=== PATIENT | male | born 1955 | race Caucasian/White ===

== ENCOUNTER 2019-04-29 08:32 | Inpatient (IN) ==
[2019-04-29 09:59] LABS: Basophils # 0.1 10*3/uL (0.0-0.2); Basophils % 0.5 % (0.0-0.8); Eosinophils # 0.1 10*3/uL (0.0-0.87); Eosinophils % 0.6 % (0.00-10.9); Hematocrit 50.9 VOL% (42.0-52.0); Hemoglobin 16.9 GM/DL (14.0-18.0); Immature Granulocytes % 0.2 %; Immature Granulocytes Absolute 0.03 #; Lymphocytes # 3.2 10*3/uL (1.4-4.0); Lymphocytes % 25.4 % (21.2-54.2); Mean Corpuscular HGB Conc 33.2 GM/DL (32-36); Mean Corpuscular Volume 87.9 FL (87-102); Mean Platelet Volume 10.6 FL (9.6-12.0); Monocytes % 8.4 % (1.7-12.7); Neutrophils % 64.9 % (38.7-73.9); Platelet Count 310 T/CUMM (130-400); Red Blood Count 5.79 MC/CUMM (3.8-5.5); Red Cell Distribution Width 13.7 % (9.3-17.3); White Blood Count 12.4 T/CUMM (4-12)
[2019-04-29 10:24] LABS: Albumin 4.2 G/DL (3.4-5.0); Bilirubin,Total 0.6 MG/DL (0.2-1.0); Calcium 10.3 MG/DL (8.5-10.1); Osmolality,Calculated 270.1 MOS/KG (273-304); Total Protein 9.5 G/DL (6.4-8.3)
[2019-04-29] MEDS ORDERED: KETOROLAC 60 MG/2 ML VIAL IM ONE (10:25)
[2019-04-29] MEDS ORDERED: KETOROLAC 30 MG/1 ML VIAL IV STA (10:25)
[2019-04-29] MEDS ORDERED: ACETAMINOPHEN 325 MG TABLET PO PRN (10:59)
[2019-04-29] MEDS ORDERED: ONDANSETRON 4 MG/2 ML VIAL IV PRN (10:59)
[2019-04-29] MEDS ORDERED: PROMETHAZINE 25 MG/1 ML VIAL IM PRN (10:59)
[2019-04-29 12:21] LABS: Parathyroid Hormone Intact 40.3 PG/ML (18.4-80.1)
[2019-04-29] MEDS: KETOROLAC 30 MG/1 ML VIAL IV SCH ×2 (13:15→17:50)
[2019-04-29] MEDS ORDERED: CEFEPIME 2,000 MG in SODIUM CHLORIDE 0.9% 100 ML IV SCH (14:00)
[2019-04-29] MEDS: cefTRIAXone 2,000 MG in SYRINGE 1 EACH IV SCH (14:29)
[2019-04-29] MEDS: AMPICILLIN INJ 2,000 MG in SODIUM CHLORIDE 0.9% 100 ML IV SCH ×2 (14:32→20:22)
[2019-04-29] MEDS: DEXTROSE 5% NACL 0.45% 1,000 ML IV SCH (14:36)
[2019-04-29] MEDS ORDERED: VANCOMYCIN INJ 2,250 MG in SODIUM CHLORIDE 0.9% 500 ML IV ONE (15:00)
[2019-04-29] MEDS: ACYCLOVIR INJ 850 MG in SODIUM CHLORIDE 0.9% 250 ML IV SCH ×2 (15:22→22:31)
[2019-04-29] MEDS: METHOCARBAMOL INJ 1,000 MG in SODIUM CHLORIDE 0.9% 100 ML IV SCH (17:41)
[2019-04-30] MEDS: METHOCARBAMOL INJ 1,000 MG in SODIUM CHLORIDE 0.9% 100 ML IV SCH ×3 (00:26→16:13)
[2019-04-30] MEDS: KETOROLAC 30 MG/1 ML VIAL IV SCH ×4 (01:10→17:48)
[2019-04-30] MEDS: DEXTROSE 5% NACL 0.45% 1,000 ML IV SCH ×3 (01:40→15:32)
[2019-04-30] MEDS: cefTRIAXone 2,000 MG in SYRINGE 1 EACH IV SCH (02:36)
[2019-04-30] MEDS: AMPICILLIN INJ 2,000 MG in SODIUM CHLORIDE 0.9% 100 ML IV SCH ×3 (02:37→15:32)
[2019-04-30] MEDS: VANCOMYCIN INJ 1,250 MG in SODIUM CHLORIDE 0.9% 250 ML IV SCH ×2 (03:35→16:13)
[2019-04-30 05:17] LABS: Total Protein (Chem) 9.5 G/DL (6.4-8.3)
[2019-04-30 05:50] LABS: Basophils # 0.1 10*3/uL (0.0-0.2); Basophils % 0.8 % (0.0-0.8); Eosinophils # 0.3 10*3/uL (0.0-0.87); Eosinophils % 4.1 % (0.00-10.9); Hematocrit 42.4 VOL% (42.0-52.0); Hemoglobin 13.8 GM/DL (14.0-18.0); Immature Granulocytes % 0.3 %; Immature Granulocytes Absolute 0.02 #; Lymphocytes # 2.8 10*3/uL (1.4-4.0); Lymphocytes % 37.6 % (21.2-54.2); Mean Corpuscular HGB Conc 32.5 GM/DL (32-36); Mean Corpuscular Volume 89.3 FL (87-102); Mean Platelet Volume 10.4 FL (9.6-12.0); Monocytes % 12.9 % (1.7-12.7); Neutrophils % 44.3 % (38.7-73.9); Platelet Count 248 T/CUMM (130-400); Red Blood Count 4.75 MC/CUMM (3.8-5.5); Red Cell Distribution Width 13.6 % (9.3-17.3); White Blood Count 7.4 T/CUMM (4-12)
[2019-04-30] MEDS: ACYCLOVIR INJ 850 MG in SODIUM CHLORIDE 0.9% 250 ML IV SCH ×2 (06:03→17:42)
[2019-04-30 06:04] LABS: Bilirubin,Total 0.6 MG/DL (0.2-1.0); Calcium 9.1 MG/DL (8.5-10.1); Osmolality,Calculated 277.5 MOS/KG (273-304); Risk Ratio 4.97; Total Protein 6.9 G/DL (6.4-8.3)
[2019-04-30 06:53] LABS: Immuno Free Light Chain Kappa 4.73 MG/DL (0.33-1.94); Immuno Free Light Chain Lambda 2.25 MG/DL (0.57-2.63); Immuno Free Light Chain Ratio 2.1 MG/DL (0.26-1.65)
[2019-04-30 07:52] LABS: Albumin (SPE) Rel % 61.6 %; Alpha 1 (SPE) Rel % 2.7 %; Alpha 2 (SPE) Rel % 10.6 %; Beta (SPE) Rel % 10.8 %; Gamma (SPE) Rel % 14.3 %
[2019-04-30 08:17] LABS: Albumin (SPE) 5.9 G/DL (3.2-5.3); Alpha 1 (SPE) 0.3 G/DL (0.1-0.4); Gamma (SPE) 1.4 G/DL (0.7-1.7)
[2019-04-30] MEDS: PANTOPRAZOLE 40 MG TABLET PO SCH (09:21)
[2019-04-30] MEDS: ENOXAPARIN 40 MG/0.4 ML SYRINGE SUBCUT SCH (20:39)
[2019-05-01] MEDS: METHOCARBAMOL INJ 1,000 MG in SODIUM CHLORIDE 0.9% 100 ML IV SCH ×3 (00:37→17:17)
[2019-05-01] MEDS: ACYCLOVIR INJ 850 MG in SODIUM CHLORIDE 0.9% 250 ML IV SCH ×3 (01:24→17:59)
[2019-05-01] MEDS: DEXTROSE 5% NACL 0.45% 1,000 ML IV SCH ×2 (05:47→22:52)
[2019-05-01] MEDS: PANTOPRAZOLE 40 MG TABLET PO SCH (08:53)
[2019-05-01] MEDS ORDERED: NITROGLYCERIN SL 0.4 MG TABLET SL PRN (10:33)
[2019-05-01] MEDS ORDERED: CYCLOBENZAPRINE 10 MG TABLET PO PRN (10:33)
[2019-05-01] MEDS: cefTRIAXone 2,000 MG in SYRINGE 1 EACH IV SCH ×2 (11:58→22:52)
[2019-05-01] MEDS: ASPIRIN EC 81 MG TABLET PO SCH (12:06)
[2019-05-01] MEDS: ATORVASTATIN 10 MG TABLET PO SCH (12:06)
[2019-05-01] MEDS: CLOPIDOGREL 75 MG TABLET PO SCH (12:06)
[2019-05-01] MEDS: hydroCHLOROthiazide 25 MG TABLET PO SCH (12:06)
[2019-05-01] MEDS: AMPICILLIN INJ 2,000 MG in SODIUM CHLORIDE 0.9% 100 ML IV SCH ×3 (12:07→22:52)
[2019-05-01] MEDS: DULoxetine 20 MG CAPSULE PO SCH ×2 (12:15→20:18)
[2019-05-01] MEDS: VANCOMYCIN INJ 1,250 MG in SODIUM CHLORIDE 0.9% 250 ML IV SCH ×2 (12:29→22:52)
[2019-05-01] MEDS: CLORAZEPATE 3.75 MG TABLET PO SCH ×2 (15:27→20:18)
[2019-05-01] MEDS: GABAPENTIN 400 MG CAPSULE PO SCH (20:18)
[2019-05-01] MEDS: ENOXAPARIN 40 MG/0.4 ML SYRINGE SUBCUT SCH (20:19)
[2019-05-01] MEDS: traZODone 50 MG TABLET PO SCH (20:19)
[2019-05-02] MEDS: ACYCLOVIR INJ 850 MG in SODIUM CHLORIDE 0.9% 250 ML IV SCH ×3 (01:13→16:45)
[2019-05-02] MEDS: METHOCARBAMOL INJ 1,000 MG in SODIUM CHLORIDE 0.9% 100 ML IV SCH ×2 (01:13→09:23)
[2019-05-02] MEDS: AMPICILLIN INJ 2,000 MG in SODIUM CHLORIDE 0.9% 100 ML IV SCH ×4 (05:04→22:04)
[2019-05-02 06:15] LABS: Basophils # 0.1 10*3/uL (0.0-0.2); Basophils % 1.1 % (0.0-0.8); Eosinophils # 0.5 10*3/uL (0.0-0.87); Eosinophils % 6.3 % (0.00-10.9); Hematocrit 42.6 VOL% (42.0-52.0); Hemoglobin 13.9 GM/DL (14.0-18.0); Immature Granulocytes % 0.4 %; Immature Granulocytes Absolute 0.03 #; Lymphocytes # 3.2 10*3/uL (1.4-4.0); Lymphocytes % 42.6 % (21.2-54.2); Mean Corpuscular HGB Conc 32.6 GM/DL (32-36); Mean Corpuscular Volume 89.3 FL (87-102); Mean Platelet Volume 10.6 FL (9.6-12.0); Monocytes % 8.5 % (1.7-12.7); Neutrophils % 41.1 % (38.7-73.9); Platelet Count 247 T/CUMM (130-400); Red Blood Count 4.77 MC/CUMM (3.8-5.5); Red Cell Distribution Width 13.5 % (9.3-17.3); White Blood Count 7.4 T/CUMM (4-12)
[2019-05-02 06:27] LABS: Calcium 9.1 MG/DL (8.5-10.1); Osmolality,Calculated 279.4 MOS/KG (273-304)
[2019-05-02] MEDS: hydroCHLOROthiazide 25 MG TABLET PO SCH (09:18)
[2019-05-02] MEDS: CLOPIDOGREL 75 MG TABLET PO SCH (09:18)
[2019-05-02] MEDS: CLORAZEPATE 3.75 MG TABLET PO SCH ×3 (09:18→20:32)
[2019-05-02] MEDS: PANTOPRAZOLE 40 MG TABLET PO SCH (09:18)
[2019-05-02] MEDS: ATORVASTATIN 10 MG TABLET PO SCH (09:18)
[2019-05-02] MEDS: ASPIRIN EC 81 MG TABLET PO SCH (09:18)
[2019-05-02] MEDS: DULoxetine 20 MG CAPSULE PO SCH ×2 (10:08→20:32)
[2019-05-02] MEDS: cefTRIAXone 2,000 MG in SYRINGE 1 EACH IV SCH ×2 (11:21→20:32)
[2019-05-02] MEDS: VANCOMYCIN INJ 1,250 MG in SODIUM CHLORIDE 0.9% 250 ML IV SCH (11:43)
[2019-05-02] MEDS: DEXTROSE 5% NACL 0.45% 1,000 ML IV SCH ×4 (11:51→22:05)
[2019-05-02] MEDS: METHOCARBAMOL 500 MG TABLET PO SCH ×2 (14:47→20:32)
[2019-05-02] MEDS: traZODone 50 MG TABLET PO SCH (20:32)
[2019-05-02] MEDS: ENOXAPARIN 40 MG/0.4 ML SYRINGE SUBCUT SCH (20:32)
[2019-05-02] MEDS: GABAPENTIN 400 MG CAPSULE PO SCH (20:32)
[2019-05-03] MEDS: ACYCLOVIR INJ 850 MG in SODIUM CHLORIDE 0.9% 250 ML IV SCH ×3 (00:40→16:36)
[2019-05-03] MEDS: AMPICILLIN INJ 2,000 MG in SODIUM CHLORIDE 0.9% 100 ML IV SCH ×2 (02:53→10:46)
[2019-05-03 04:56] LABS: Basophils # 0.1 10*3/uL (0.0-0.2); Basophils % 1.3 % (0.0-0.8); Eosinophils # 0.6 10*3/uL (0.0-0.87); Eosinophils % 9.5 % (0.00-10.9); Hematocrit 39.7 VOL% (42.0-52.0); Hemoglobin 12.9 GM/DL (14.0-18.0); Immature Granulocytes % 0.1 %; Immature Granulocytes Absolute 0.01 #; Mean Corpuscular HGB Conc 32.5 GM/DL (32-36); Mean Corpuscular Volume 88.4 FL (87-102); Mean Platelet Volume 10.6 FL (9.6-12.0); Monocytes % 9.7 % (1.7-12.7); Neutrophils % 35.4 % (38.7-73.9); Platelet Count 249 T/CUMM (130-400); Red Blood Count 4.49 MC/CUMM (3.8-5.5); Red Cell Distribution Width 13.6 % (9.3-17.3); White Blood Count 6.8 T/CUMM (4-12)
[2019-05-03 05:44] LABS: Atypical Lymphocytes Few; Band Neutrophils 2 % (0-10); Eosinophils 9 % (0-10); Hypochromasia 1+; Lymphocytes 41 % (20-55); Microcytosis Slight; Segmented Neutrophils 43 % (50-85); Total Cells Counted 100
[2019-05-03 05:45] LABS: Platelet Estimate Normal
[2019-05-03 06:04] LABS: Bilirubin,Total 0.5 MG/DL (0.2-1.0); Calcium 9.1 MG/DL (8.5-10.1); Osmolality,Calculated 280.3 MOS/KG (273-304); Total Protein 6.6 G/DL (6.4-8.3)
[2019-05-03] MEDS: ASPIRIN EC 81 MG TABLET PO SCH (08:45)
[2019-05-03] MEDS: hydroCHLOROthiazide 25 MG TABLET PO SCH (08:45)
[2019-05-03] MEDS: CLORAZEPATE 3.75 MG TABLET PO SCH ×3 (08:45→20:24)
[2019-05-03] MEDS: DEXTROSE 5% NACL 0.45% 1,000 ML IV SCH ×2 (08:45→18:05)
[2019-05-03] MEDS: PANTOPRAZOLE 40 MG TABLET PO SCH (08:46)
[2019-05-03] MEDS: DULoxetine 20 MG CAPSULE PO SCH ×2 (08:46→20:24)
[2019-05-03] MEDS: CLOPIDOGREL 75 MG TABLET PO SCH (08:46)
[2019-05-03] MEDS: ATORVASTATIN 10 MG TABLET PO SCH (08:46)
[2019-05-03] MEDS: METHOCARBAMOL 500 MG TABLET PO SCH ×3 (08:47→20:24)
[2019-05-03] MEDS: cefTRIAXone 2,000 MG in SYRINGE 1 EACH IV SCH ×2 (09:02→20:22)
[2019-05-03] MEDS ORDERED: POTASSIUM CHLORIDE 20 MEQ TABLET PO ONE (09:10)
[2019-05-03] MEDS: DICLOFENAC 1% GEL 100 GM TUBE TOP SCH ×3 (13:10→20:23)
[2019-05-03] MEDS: ENOXAPARIN 40 MG/0.4 ML SYRINGE SUBCUT SCH (20:23)
[2019-05-03] MEDS: traZODone 50 MG TABLET PO SCH (20:24)
[2019-05-03] MEDS: GABAPENTIN 400 MG CAPSULE PO SCH (20:24)
[2019-05-04] MEDS: ACYCLOVIR INJ 850 MG in SODIUM CHLORIDE 0.9% 250 ML IV SCH ×2 (00:45→08:48)
[2019-05-04] MEDS: DEXTROSE 5% NACL 0.45% 1,000 ML IV SCH (05:20)
[2019-05-04 05:48] LABS: Basophils # 0.1 10*3/uL (0.0-0.2); Basophils % 0.9 % (0.0-0.8); Eosinophils # 0.6 10*3/uL (0.0-0.87); Eosinophils % 7.6 % (0.00-10.9); Hematocrit 41.7 VOL% (42.0-52.0); Hemoglobin 13.7 GM/DL (14.0-18.0); Immature Granulocytes % 0.1 %; Immature Granulocytes Absolute 0.01 #; Lymphocytes # 2.9 10*3/uL (1.4-4.0); Lymphocytes % 39.1 % (21.2-54.2); Mean Corpuscular HGB Conc 32.9 GM/DL (32-36); Mean Corpuscular Volume 88.3 FL (87-102); Mean Platelet Volume 10.4 FL (9.6-12.0); Monocytes % 10.7 % (1.7-12.7); Neutrophils % 41.6 % (38.7-73.9); Platelet Count 260 T/CUMM (130-400); Red Blood Count 4.72 MC/CUMM (3.8-5.5); Red Cell Distribution Width 13.5 % (9.3-17.3); White Blood Count 7.5 T/CUMM (4-12)
[2019-05-04 06:04] LABS: Calcium 9.1 MG/DL (8.5-10.1); Osmolality,Calculated 280.3 MOS/KG (273-304)
[2019-05-04 07:45] VITALS: BP 146/82
[2019-05-04] MEDS: DULoxetine 20 MG CAPSULE PO SCH (08:44)
[2019-05-04] MEDS: CLORAZEPATE 3.75 MG TABLET PO SCH (08:44)
[2019-05-04] MEDS: hydroCHLOROthiazide 25 MG TABLET PO SCH (08:44)
[2019-05-04] MEDS: ASPIRIN EC 81 MG TABLET PO SCH (08:44)
[2019-05-04] MEDS: PANTOPRAZOLE 40 MG TABLET PO SCH (08:44)
[2019-05-04] MEDS: METHOCARBAMOL 500 MG TABLET PO SCH (08:44)
[2019-05-04] MEDS: CLOPIDOGREL 75 MG TABLET PO SCH (08:45)
[2019-05-04] MEDS: cefTRIAXone 2,000 MG in SYRINGE 1 EACH IV SCH (08:47)
[2019-05-04] MEDS: DICLOFENAC 1% GEL 100 GM TUBE TOP SCH (08:49)
[2019-05-04] MEDS: ATORVASTATIN 10 MG TABLET PO SCH (09:32)
== END 2019-05-04 10:29 | disposition home or self-care (01) | DRG 98 ==
LOC: N.ED 08:32 → SUATTDRO 10:59 → N.EDINP 10:59 → N.2E 13:55
PROVIDERS: ADMIT Internal Medicine; ATTEND Internal Medicine Infectious Disease